=== PATIENT | female | born 1955 | race Caucasian/White ===

== ENCOUNTER → 2017-03-17 | Outpatient (CLI) | payer OTHER | LOC: HEART CORB 13:27 | DX: I25.10 Atherosclerotic heart disease of native coronary artery without angina pectoris (principal); I25.5 Ischemic cardiomyopathy | CPT/HCPCS: 93306 ==

== ENCOUNTER → 2021-07-16 | Outpatient (CLI) | payer MEDICARE, OTHER ==
[~2021-07-16] MED LIST: AMARYL 2MG TABLE2 MG PO; AMITRIPTYLINE H25 MG PO; ASPIR 8181 MG PO; CARVEDILOL3.125 MG PO; HUMALOG MI100 UNIT/4 SC; LANTUS INS100 UTS/M2 SC; LISINOPRIL2.5 MG PO; LOPID TAB 600600 MG PO; LORTAB 5-325 M1 EACH PO; METFORMIN HCL1000 MG PO; NEURONTIN 300300 MG PO; ROBAXIN-750750 MG PO; SINGULAIR10 MG PO
== END ==
LOC: HEART CORB 11:00
DX: I25.5 Ischemic cardiomyopathy (principal); I27.20 Pulmonary hypertension, unspecified; R94.39 Abnormal result of other cardiovascular function study; I07.1 Rheumatic tricuspid insufficiency

== ENCOUNTER → 2021-08-04 | Outpatient (CLI) | payer MEDICARE, OTHER | LOC: EMI 12:57 | DX: M51.14 Intervertebral disc disorders with radiculopathy, thoracic region (principal) | CPT/HCPCS: 72146 ==